=== PATIENT | female | born 1935 | race Caucasian/White ===

== ENCOUNTER → 2016-08-11 | Outpatient (CLI) | payer MEDICARE, OTHER ==
[2016-08-11 13:28] LABS: BLOOD, URINE TRACE (NEG); GLUCOSE,URINE NEG (NEG); KETONE, URINE NEG (NEG); NITRITE,URINE NEG (NEG); SQUAMOUS EPITHELIAL CELL URINE <1 /hpf (0-5); URINE COLOR YELLOW (YELLW/STRAW)
[2016-08-11 13:44] LABS: ANION GAP 4 MEQ/L (5-15); AST (GOT) 25 U/L (15-37); BICARBONATE 30.9 MEQ/L (21.0-32.0); BLOOD UREA NITROGEN 18 MG/DL (7-18); CHLORIDE 106 MEQ/L (98-107); GLOMERULAR FILTRATION RATE 60 ML/MIN (>89); GLUCOSE,FASTING 101 MG/DL (74-99); POTASSIUM 4.6 MEQ/L (3.5-5.1); SODIUM (NA) 141 MEQ/L (136-145)
[2016-08-11 13:49] LABS: ALKALINE PHOSPHATASE 44 U/L (45-117); ALT (GPT) 27 U/L (10-53); HDL CHOLESTEROL 51.4 MG/DL (40.0-60.0); LDL CHOLESTEROL 164 MG/DL (0-99); LDL CHOLESTEROL DIRECT 163 MG/DL (0-99); TOTAL BILIRUBIN ADULT 0.5 MG/DL (0.2-1.0)
== END ==
LOC: PLAB 09:20
PROVIDERS: ATTEND Family Medicine
DX: E78.5 Hyperlipidemia, unspecified (principal)
CPT/HCPCS: 36415; 80053; 80061; 81001; 83721

== ENCOUNTER → 2017-03-04 | Outpatient (CLI) | payer MEDICARE, OTHER ==
[2017-03-04 16:05] LABS: ALBUMIN 3.8 GM/DL (3.4-5.0); AST (GOT) 24 U/L (15-37); BLOOD UREA NITROGEN 15 MG/DL (7-18); CALCIUM 8.7 MG/DL (8.5-10.1); CHLORIDE 105 MEQ/L (98-107); CHOLESTEROL 161 MG/DL (120-200); GLOMERULAR FILTRATION RATE 60 ML/MIN (>89); GLUCOSE,FASTING 90 MG/DL (74-99); SODIUM (NA) 141 MEQ/L (136-145); TRIGLYCERIDES 86 MG/DL (42-150)
[2017-03-04 16:09] LABS: ALKALINE PHOSPHATASE 45 U/L (45-117); ALT (GPT) 23 U/L (10-53); CHOLESTEROL/ HDL RATIO 3.31 RATIO; HDL CHOLESTEROL 48.6 MG/DL (40.0-60.0); LDL CHOLESTEROL 95 MG/DL (0-99); LDL CHOLESTEROL DIRECT 100 MG/DL (0-99); TOTAL BILIRUBIN ADULT 0.5 MG/DL (0.2-1.0); TOTAL PROTEIN 7.2 GM/DL (6.4-8.2)
== END ==
LOC: PLAB 07:57
PROVIDERS: ATTEND Family Medicine
DX: E78.5 Hyperlipidemia, unspecified (principal); N18.3 Chronic kidney disease, stage 3 (moderate)
CPT/HCPCS: 36415; 80053; 80061; 82306; 83721; 83970